=== PATIENT | female | born 2000 | race Caucasian/White ===

== ENCOUNTER 2022-04-13 21:16 | Emergency (ER) | payer SELFPAY ==
[2022-04-13] MEDS ORDERED: Magnesium Hydroxide 400 MG/5 ML Susp 30 ML Cup PO ONE (23:02)
[2022-04-13 23:47] LABS: CARBON DIOXIDE,CO2 28.3 mmol/L (21.0-32.0); POTASSIUM,K 3.6 mmol/L (3.5-5.1)
== END 2022-04-14 00:04 | disposition home or self-care (01) ==
LOC: MW.ED 21:16
DX: R10.10 Upper abdominal pain, unspecified (principal)
CPT/HCPCS: 36415; 74018; 80053; 81001; 81025; 83690; 85025; 99284; A9270

== ENCOUNTER 2024-01-30 18:53 | Emergency (ER) | payer OTHER | END 2024-01-30 22:01 | disposition home or self-care (01) | LOC: MW.ED 18:53 | DX: S00.03XA Contusion of scalp, initial encounter (principal); Z75.8 Other problems related to medical facilities and other health care; Y04.8XXA Assault by other bodily force, initial encounter | CPT/HCPCS: 70450; 70450-26; 99283; 99284 ==

== ENCOUNTER 2024-06-14 16:13 | Emergency (ER) | payer OTHER | END 2024-06-14 19:19 | disposition home or self-care (01) | LOC: MW.ED 16:13 | DX: J02.8 Acute pharyngitis due to other specified organisms (principal); Z75.8 Other problems related to medical facilities and other health care | CPT/HCPCS: 87428; 87651; 96374; 99283; J1100 ==